=== PATIENT | male | born 1970 | race Caucasian/White ===

== ENCOUNTER 2017-07-28 01:09 | Emergency (ER) | payer OTHER ==
[~2017-07-28] VITALS: Ht 175.3 cm; Wt 96.6 kg
[~2017-07-28 01:09] MED LIST: IBUPROFEN 800800 MG PO; KEFLEX500 MG PO; NORCO 5-325 TA1 EACH PO; TRAMADOL 50 MG50 MG PO
[2017-07-28] MEDS ORDERED: NOHOMEMEDICATIONS (01:17)
[2017-07-28] MEDS ORDERED: PERCOCET 7.5-31 EACH PO (01:33)
[2017-07-28] MEDS ORDERED: POLYMYXIN B/TMP10 ML INTRAOCULR (01:33)
[2017-07-28 01:55] VITALS: BP 138/94
== END 2017-07-28 01:57 | disposition home or self-care (01) ==
LOC: M.ERS 01:09
DX: H16.133 Photokeratitis, bilateral (principal); F17.210 Nicotine dependence, cigarettes, uncomplicated

== ENCOUNTER 2019-03-13 08:51 | Emergency (ER) | payer OTHER ==
[~2019-03-13] VITALS: Ht 175.3 cm; Wt 98.4 kg
[~2019-03-13 08:51] MED LIST changes: +NOHOMEMEDICATIONS; +PERCOCET 7.5-31 EACH PO; +POLYMYXIN B/TMP10 ML INTRAOCULR
[2019-03-13] MEDS ORDERED: KEFLEX500 M1 PO (09:46)
[2019-03-13] MEDS ORDERED: NORCO 5-325 TA1 EAC1 PO (09:46)
[2019-03-13 10:29] VITALS: BP 114/73
== END 2019-03-13 10:30 | disposition home or self-care (01) ==
LOC: M.ERS 08:51
DX: S61.214A Laceration without foreign body of right ring finger without damage to nail, initial encounter (principal); F17.210 Nicotine dependence, cigarettes, uncomplicated; W23.0XXA Caught, crushed, jammed, or pinched between moving objects, initial encounter; Y93.89 Activity, other specified; Y92.89 Other specified places as the place of occurrence of the external cause; Y99.8 Other external cause status

== ENCOUNTER 2020-08-30 16:26 | Emergency (ER) | payer OTHER ==
[~2020-08-30] VITALS: Ht 175.3 cm; Wt 94.8 kg
[~2020-08-30 16:26] MED LIST changes: +KEFLEX500 M1 PO; +NORCO 5-325 TA1 EAC1 PO
[2020-08-30] MEDS ORDERED: CIPROFLOXIN HC2.5 M1 OPHTHALMIC (17:42)
[2020-08-30 18:32] VITALS: BP 137/93
== END 2020-08-30 18:34 | disposition home or self-care (01) ==
LOC: M.ERS 16:26
DX: T15.92XA Foreign body on external eye, part unspecified, left eye, initial encounter (principal); F17.210 Nicotine dependence, cigarettes, uncomplicated; W22.8XXA Striking against or struck by other objects, initial encounter; Y93.89 Activity, other specified; Y92.89 Other specified places as the place of occurrence of the external cause; Y99.8 Other external cause status